=== PATIENT | female | born 1960 | race Caucasian/White ===

== ENCOUNTER → 2022-09-09 | Outpatient (CLI) | payer BC ==
[~2022-09-09] MED LIST: CATHETER FLUSH 10 ML SYR IVP PRN
--- NOTE | 2022-09-10 09:05 | Diagnostic Imaging Report ---
INDICATION: Lung carcinoma, subsequent staging. TECHNIQUE: Serum blood glucose level at the time of injection is 107 mg/dL. Patient was administered 9.7 mCi F-18 FDG intravenously and PET imaging from the top of the skull to mid thighs was performed. In addition, noncontrast CT was performed for attenuation correction and anatomic correlation. COMPARISON is made with outside PET/CT study from 10/08/2021. There is symmetric activity throughout the brain. Soft tissues of the neck are unremarkable. The large cavitary mass in the right upper lobe demonstrates significantly less hypermetabolism when compared with prior PET/CT. There is minimal hypermetabolism along the medial margin with an SUV max of 8.3. There is minimal hypermetabolism inferiorly and slightly lateral along the margin, as well. No definite hilar or mediastinal hypermetabolism is seen on today's study. The left lung is unremarkable. Abdomen and pelvis demonstrate physiologic activity throughout the gastrointestinal and genitourinary tracts. No suspicious areas of hypermetabolism are seen. IMPRESSION: Significant improvement when compared with the examination from one year earlier. There has been significant decrease in the degree of hypermetabolism involving the right upper lobe mass, as described. No new areas of hypermetabolism are detected. Dictated by: Dictated on workstation # [id number]
== END ==
LOC: RAD 12:54
PROVIDERS: ATTEND Internal Medicine Hematology & Oncology
DX: C34.90 Malignant neoplasm of unspecified part of unspecified bronchus or lung (principal)
CPT/HCPCS: 78815; 82947; A9552

== ENCOUNTER → 2023-04-07 | Outpatient (CLI) | payer BC ==
[2023-04-07] MEDS: CATHETER FLUSH 10 ML SYR IVP PRN ×2 (13:09→13:10)
--- NOTE | 2023-04-08 09:31 | Diagnostic Imaging Report ---
INDICATION: Subsequent staging lung carcinoma. TECHNIQUE: The serum blood glucose level at the time of injection was 121 mg/dL. The patient was administered 10.2 mCi of F-18 FDG intravenously and PET imaging was performed from the top of the skull to the mid thighs. Noncontrast CT was also performed for attenuation correction and anatomic correlation. COMPARISON: Correlation is made with the prior PET/CT study from 09/09/2022. FINDINGS: The previously noted cavitary mass in the right lung apex is again noted. This appears to be more solid on today's study. There is some hypermetabolism along the margins of the mass. The more medial area of hypermetabolism has an SUV max of 9.7. Hypermetabolism along the posterolateral margin of the lesion has an SUV max of 10.6. There has been development of an area of abnormal soft tissue thickening involving the anterior right upper lobe just below the level of the lesion as well as involvement of the pleura. The SUV max is approximately 8.1. The area of consolidation extends into the right middle lobe. A nodular focus has developed in the right lower lobe posteromedially with low-level activity with an SUV max of 4.3. No other pulmonary parenchymal foci are detected. Physiologic activity throughout the GI and tracts is noted without suspicious hypermetabolic foci. No mediastinal or hilar hypermetabolic foci are seen. IMPRESSION: The large right upper lobe mass again demonstrates hypermetabolism along the margins and appears less cavitary on today's exam. There has been development of pleural parenchymal involvement anteriorly in the right upper lobe just below the level of the lesion and extending into the right middle lobe. This shows FDG avidity and is concerning for neoplastic involvement as well. A low level hypermetabolic nodule in the right lower lobe is indeterminate but suspicious as well. Dictated by: Dictated on workstation # [id number]
== END ==
LOC: RAD 12:42
PROVIDERS: ATTEND Internal Medicine Hematology & Oncology
DX: C34.11 Malignant neoplasm of upper lobe, right bronchus or lung (principal)
CPT/HCPCS: 78815; 82947; A9552